=== PATIENT | female | born 1965 | race American Indian/Alaskan Native ===

== ENCOUNTER 2017-08-28 06:43 | Day surgery (SDC) | payer OTHER ==
[~2017-08-28 06:43] MED LIST: ANCEF/STERILE WATER 2 GM/20 ML 2 GM/20 ML SYRINGE IV NR; NACL 0.9% 1000 ML 1,000 ML IV SCH
[2017-08-28 07:51] LABS: Basophils % (Auto) 0.7 % (0.0-1.8); Eosinophils # (Auto) 0.2 K/mm3 (0.0-0.4); Eosinophils % (Auto) 2.5 % (0.0-4.3); Hematocrit 39.8 % (30.3-42.9); Hemoglobin 13.5 gm/dl (10.1-14.3); Lymphocytes % (Auto) 30.2 % (13.4-35.0); Mean Corpuscular HGB Conc 34 % (30-34); Mean Corpuscular Hemoglobin 31 pg (28-32); Mean Corpuscular Volume 90 fl (79-97); Monocytes # (Auto) 0.4 K/mm3 (0.0-0.8); Monocytes % (Auto) 6.3 % (0.0-7.3); Platelet Count 219 K/mm3 (140-440); Red Blood Count 4.42 M/mm3 (3.65-5.03)
[2017-08-28 08:04] LABS: INR 0.92 (0.87-1.13)
[2017-08-28 08:07] LABS: BUN/Creatinine Ratio 15; Blood Urea Nitrogen 12 mg/dL (7-17); Calcium 9.2 mg/dL (8.4-10.2); Hemolysis Index 39
[2017-08-28] MEDS ORDERED: HEPARIN/NS 5000 UNIT/500ML(CATH LAB) 1,000 ML IR ONE (08:08)
[2017-08-28] MEDS ORDERED: XYLOCAINE 2% INFILTRATI ONE (08:08)
[2017-08-28] MEDS ORDERED: HEPARIN 10,000 UNITS/10 ML ONE (08:08)
[2017-08-28] MEDS ORDERED: ANCEF/STERILE WATER 2 GM/20 ML 2 GM/20 ML SYRINGE IV ONE (08:09)
[2017-08-28] MEDS: VERSED ONE ×2 (08:45→09:18)
[2017-08-28] MEDS: SUBLIMAZE ONE ×2 (08:45→09:18)
[2017-08-28] MEDS ORDERED: NACL 0.9% 500 ML 500 ML IV SCH (09:00)
[2017-08-28] MEDS ORDERED: TORADOL ONE (09:13)
--- NOTE | 2017-08-28 09:24 | Short Stay Summary ---
Short Stay Documentation Date of service: 08/28/17 - History Principal diagnosis: Vienous insufficiency, venous hypertension of BLE H&P: obtained from office - Allergies and Medications Current Medications: Allergies Sulfa (Sulfonamide Antibiotics) Allergy (Unverified 08/28/17 06:45) Itching, FLU LIKE SYMPTOMS Home Medications Medication Instructions Recorded Confirmed Last Taken Type Carvedilol [Coreg] 6.25 mg PO BID 08/28/17 08/28/17 08/28/17 04:30 History 6.25mg Furosemide [Lasix TAB] 40 mg PO DAILY 08/28/17 08/28/17 08/27/17 History 40meq Potassium Chloride [Klor-Con 10 meq PO DAILY 08/28/17 08/28/17 08/26/17 History Sprinkle] 10meq Active Medications Cefazolin Sodium (Ancef/Sterile Water 2 Gm/20 Ml) 2 gm in 20 mls @ 80 mls/hr IV PREOP NR; Protocol Stop: 08/28/17 12:00 Sodium Chloride (Nacl 0.9% 500 Ml) 500 mls @ 50 mls/hr IV DIRECT FRANCESCA - Brief post op/procedure progress note Date of procedure: 08/28/17 Pre-op diagnosis: Vienous insufficiency, venous hypertension of BLE Post-op diagnosis: same Procedure: BLE venogram with stent placement Anesthesia: local Surgeon: FABIOLA RAMÍREZ Estimated blood loss: minimal Pathology: none Condition: stable - Disposition Condition at discharge: Good Disposition: [id number] TO HOME OR SELFCARE Short Stay Discharge Plan Activity: advance as tolerated Weight Bearing Status: Weight Bear as Tolerated Diet: regular Wound: keep clean and dry, per your surgeon's advice Follow up with: YOLANDA ZHENG MD [Primary Care Provider] - 7 Days
--- NOTE | 2017-08-28 09:32 | Operative Report ---
Operative Report Operative Report: EXAM: BILATERAL LOWER EXTREMITY VENOGRAM, VENOPLASTY WAS STENT PLACEMENT, SECOND -ORDER SELECTION OF LEFT GONADAL VEIN CLINICAL INDICATION: PATIENT WITH A HISTORY OF PELVIC PAIN AND FULLNESS AND BILATERAL LOWER EXTREMITY VENOUS HYPERTENSION DATE: 08/28/2017 PROCEDURE: Following an explanation of the risks, benefits and alternatives; written informed consent was obtained. The patient was brought to the angiographic suite and placed in supine position on the exam table. Initial ultrasound evaluation of her groin demonstrated a patent bilateral femoral veins. The patient's bilateral legs were prepped and draped in the usual sterile fashion. 1% lidocaine was used for anesthesia. Under ultrasound guidance, the right femoral vein was cannulated with a 7 cm 18- gauge needle. A 0.035 guidewire was advanced centrally. The needle was removed and a 5 Dominican sheath placed. Access to the left femoral vein was obtained in a similar fashion and an additional 5 Dominican sheath placed. Diagnostic venography was then performed through the sheath which demonstrated stenosis in the common and external iliac veins bilaterally. The 5 Dominican she' s were then upsized over the 0.035 guidewire for 10 Dominican sheaths. A 5 Dominican C2 cobra catheter was advanced over the guidewire into the left sheath. Together the guidewire and catheter were advanced to the left renal vein. Selective cannulation of the left renal vein was then performed in the guidewire advanced through the left gonadal vein down into the pelvis. The C2 catheter was exchanged for a 4 Dominican vertebral catheter was was advanced to the pelvis. The guidewire was removed and venogram performed in the distal left gonadal vein. This demonstrates prompt opacification of to numerous to count dilated pelvic varicosities. The catheter and guidewire were removed. With both guidewires and the IVC, intravascular ultrasound was then performed from the IVC to the sheath insertion site on the right and from the IVC to the sheath insertion site on the left. This demonstrates luminal narrowing on the right with 50% stenosis and prestenotic dilatation of the right common and external iliac vein. On the left there is approximately 70% stenosis involving the left common iliac vein with prestenotic dilatation. Delayed imaging demonstrates filling of pelvic collaterals. An 18 x 90 Wallstent was advanced through the right sheath and positioned to cover both lesions on the right, at the 18 x 90 Wallstent was then advanced through the left sheath and positioned cover lesion on the left. Stents were deployed in a kissing fashion from the distal IVC to the external iliac veins. The stents were then seated using 16 x 40 balloons insufflated for atmospheres at multiple locations. The stent deployment imaging demonstrated brisk flow throughout the common and external iliac veins bilaterally with nonvisualization of the pelvic collaterals. The she's were removed and hemostasis achieved using manual compression. Sterile compression dressings were then placed. The patient tolerated the procedure well. There were no immediate post procedure palpitations. Conscious sedation was performed under the guidance of radiologic nursing from 8 :45 to 9:22 a.m.. Continuous cardiopulmonary monitoring was utilized IMPRESSION: 1) Diagnostic venogram with catheter placement in second-order veins demonstrating the left gonadal vein greater than 8 mm in diameter with more than 10 seconds of reflux and distention of to numerous to count pelvic varicosities. Additional diagnostic venogram demonstrating stenosis involving bilateral common iliac and external iliac veins. 2) Intravascular ultrasound of the IVC, right common iliac vein, right external iliac vein and right common femoral vein, additional IVUS of the left common iliac vein, left external iliac vein and left common femoral vein. Intravascular ultrasound demonstrates stenoses as described. 3) Treatment of the lesions with stents deployed in kissing fashion as described extending from the distal IVC to the bilateral external iliac veins with residual 0% stenosis.
[2017-08-28 10:43] VITALS: BP 106/62
== END 2017-08-28 11:30 | disposition home or self-care (01) ==
LOC: CATHLABREC 06:43
PROVIDERS: ATTEND Radiology Diagnostic Radiology
DX: I87.2 Venous insufficiency (chronic) (peripheral) (principal); I83.93 Asymptomatic varicose veins of bilateral lower extremities; I10 Essential (primary) hypertension; Z98.51 Tubal ligation status; Z88.2 Allergy status to sulfonamides; Z90.49 Acquired absence of other specified parts of digestive tract; Z79.01 Long term (current) use of anticoagulants
CPT/HCPCS: 36415; 37238; 37239; 37252; 37253; 75822; 80048; 85025; 85610; 85730; C1725; C1751; C1753; C1769; C1876; C1887; C1894; J0690; J1644; J1885; J2250; J3010; J7040; Q9967